=== PATIENT | male | born 1930 | race Caucasian/White ===

== ENCOUNTER 2019-01-18 03:04 | Observation (INO) | payer MEDICARE, BC ==
[2019-01-18 03:45] LABS: BASOPHILS % (AUTO) 1 % (0-3); EOSINOPHILS % (AUTO) 1 % (0-9); HEMATOCRIT 45 % (39-53); HEMOGLOBIN 14.5 gm/dl (13.5-17.7); LYMPHOCYTES % (AUTO) 19.8 % (10-50); MEAN CORPUSCULAR HEMOGLOBIN 32.9 pg (27.0-32.0); MEAN CORPUSCULAR HGB CONC 32.2 gm/dl (32.0-36.0); MONOCYTES % (AUTO) 7.7 % (0-12); NEUTROPHILS % (AUTO) 70.3 % (37-80)
[2019-01-18 03:54] LABS: MEAN CORPUSCULAR VOLUME 102 fL (80-100)
[2019-01-18 04:03] LABS: INR 0.98 (0.87-1.13)
[2019-01-18 04:10] LABS: ALBUMIN 3.4 gm/dl (3.4-5.0); BILIRUBIN,TOTAL 0.7 mg/dl (0.2-1.0); CALCIUM 9.2 mg/dl (8.5-10.1); CARBON DIOXIDE 24.6 mEq/L (21-32); CREATININE 1.39 mg/dl (0.80-1.30); POTASSIUM 4.4 mMol/L (3.5-5.1); TOTAL PROTEIN 6.6 gm/dl (6.4-8.2); TROP I 0.513 ng/ml (0.000-0.056)
[2019-01-18] MEDS ORDERED: HEPARIN SODIUM 5000 U/ML SOL IV ONE (04:18)
[2019-01-18] MEDS ORDERED: TICAGRELOR 90 MG TAB PO ONE ×2 (04:18→04:27)
[2019-01-18] MEDS ORDERED: HEPARIN SODIUM 5000 U/ML SOL ONE ×2 (04:27→04:55)
[2019-01-18] MEDS ORDERED: HEPARIN PREMIX 25,000 U/250 ML SOL IV PRN (04:52)
[2019-01-18] MEDS ORDERED: NITROGLYCERIN 0.4 MG TAB SL PRN (05:50)
[2019-01-18] MEDS: ASPIRIN EC 81 MG PO SCH (10:30)
[2019-01-18] MEDS: GLIPIZIDE 5 MG TAB PO SCH ×2 (10:30→17:14)
[2019-01-18] MEDS: METOPROLOL SUCCINATE 50 MG TER PO SCH (10:31)
[2019-01-18] MEDS: CLOPIDOGREL 75 MG TAB PO SCH (10:31)
[2019-01-18] MEDS: SODIUM CHLORIDE 0.9% FLUSH 10 ML SOL IV SCH ×2 (10:36→18:42)
[2019-01-18] MEDS: ASCORBIC ACID/COPPER/VITAMIN SGL PO SCH ×2 (16:32→20:52)
[2019-01-18] MEDS: FINASTERIDE 5 MG TAB PO SCH (16:33)
[2019-01-18] MEDS ORDERED: ATORVASTATIN 10 MG TAB PO SCH (21:00)
[2019-01-19] MEDS: SODIUM CHLORIDE 0.9% FLUSH 10 ML SOL IV SCH ×3 (02:17→11:40)
[2019-01-19 05:02] VITALS: O2SAT 93
[2019-01-19 07:43] LABS: CALCIUM 9.6 mg/dl (8.5-10.1); CARBON DIOXIDE 26.5 mEq/L (21-32); CREATININE 1.21 mg/dl (0.80-1.30); POTASSIUM 4.3 mMol/L (3.5-5.1); TROP I 1.663 ng/ml (0.000-0.056)
[2019-01-19 07:48] LABS: BASOPHILS % (AUTO) 1 % (0-3); EOSINOPHILS % (AUTO) 2 % (0-9); HEMATOCRIT 49 % (39-53); HEMOGLOBIN 15.1 gm/dl (13.5-17.7); LYMPHOCYTES % (AUTO) 33.3 % (10-50); MEAN CORPUSCULAR HEMOGLOBIN 31.8 pg (27.0-32.0); MONOCYTES % (AUTO) 8.6 % (0-12); NEUTROPHILS % (AUTO) 55.3 % (37-80)
[2019-01-19 07:55] LABS: MEAN CORPUSCULAR VOLUME 103 fL (80-100)
[2019-01-19 08:02] VITALS: BP 185/100; PULSE 58; RESP 18; TEMP 97.7
[2019-01-19] MEDS: GLIPIZIDE 5 MG TAB PO SCH (08:06)
[2019-01-19] MEDS ORDERED: METFORMIN HYDROCHLORIDE 500 MG TAB PO SCH ×2 (09:00→18:00)
[2019-01-19] MEDS: CLOPIDOGREL 75 MG TAB PO SCH (09:11)
[2019-01-19] MEDS: ASCORBIC ACID/COPPER/VITAMIN SGL PO SCH (09:12)
[2019-01-19] MEDS: FINASTERIDE 5 MG TAB PO SCH (09:13)
[2019-01-19] MEDS: METOPROLOL SUCCINATE 50 MG TER PO SCH (09:14)
[2019-01-19] MEDS: ASPIRIN EC 81 MG PO SCH (09:16)
== END 2019-01-19 12:30 | disposition home or self-care (01) | DRG 282 ==
LOC: ED 03:04 → ACUTE CARE 05:32
PROVIDERS: ADMIT Family Medicine; ATTEND Family Medicine
DX: I21.4 Non-ST elevation (NSTEMI) myocardial infarction (principal); R07.9 Chest pain, unspecified; E11.9 Type 2 diabetes mellitus without complications; I44.7 Left bundle-branch block, unspecified
CPT/HCPCS: 36415; 71045; 80048; 80053; 82962; 84484; 85025; 85610; 93005; 93012; 96365; 96374; 99220; 99285; J1644; A9270-GY